=== PATIENT | female | born 1995 | race Hispanic/Latino ===

== ENCOUNTER 2017-11-09 11:59 | Outpatient (CLI) | payer MEDICAID ==
[2017-11-09] MEDS ORDERED: LACTATED RINGERS 500 ML IV ONE (13:56)
[2017-11-09 16:12] LABS: Bilirubin,Urine NEG (Negative); Blood,Urine NEG (Negative); Color,Urine Yellow (Yellow); Mucus,Urine FEW /HPF; Protein,Urine <15 mg/dL mg/dL (Negative); Urobilinogen,Urine < 2.0 mg/dL (<2.0)
[2017-11-09 17:12] VITALS: BP 130/82
== END 2017-11-09 17:20 | disposition home or self-care (01) ==
LOC: TRG 11:59
PROVIDERS: ATTEND Obstetrics & Gynecology
DX: O47.03 False labor before 37 completed weeks of gestation, third trimester (principal); Z3A.31 31 weeks gestation of pregnancy
CPT/HCPCS: 59025; 81001; 96360; 96361; J7120

== ENCOUNTER 2017-12-03 07:26 | Outpatient (CLI) | payer MEDICAID ==
[2017-12-03] MEDS ORDERED: LACTATED RINGERS 1,000 ML IV ONE (08:27)
[2017-12-03 08:30] LABS: Bilirubin,Urine NEG (Negative); Blood,Urine NEG (Negative); Color,Urine Yellow (Yellow); Mucus,Urine FEW /HPF; Protein,Urine <15 mg/dL mg/dL (Negative); Urobilinogen,Urine < 2.0 mg/dL (<2.0)
[2017-12-03 09:38] VITALS: BP 126/71
== END 2017-12-03 09:38 | disposition home or self-care (01) ==
LOC: TRG 07:26
PROVIDERS: ATTEND Obstetrics & Gynecology
DX: O47.03 False labor before 37 completed weeks of gestation, third trimester (principal); Z3A.35 35 weeks gestation of pregnancy
CPT/HCPCS: 59025; 81001; 96360; J7120

== ENCOUNTER 2017-12-08 10:56 | Emergency (ER) | payer MEDICAID ==
[2017-12-08 11:10] VITALS: BP 115/70
--- NOTE | 2017-12-08 11:33 | Emergency Department Report ---
ED ENT HPI - General Chief complaint: Sore Throat Stated complaint: SORE THROAT Time Seen by Provider: 12/08/17 11:17 Source: patient Mode of arrival: Ambulatory Limitations: No Limitations - History of Present Illness Initial comments: This is a 22-year-old female that presents with a sore throat and cough for 6 days. She is 36 weeks and has a follow-up appointment on with [facility]. Reports was diagnosed with laryngeal pharyngitis last week and prescribed antibiotic and supportive medication. She has not tried taking anything for symptom control because she was afraid. She is able to tolerate liquids and solids. Admits to sore throat, cough, bilateral ear pain with coughing. Denies nausea or vomiting, fever, shortness of breath, chest pain, and dizziness. MD complaint: sore throat, ear pain -: days(s) (6 days) Location: R ear, L ear, throat Severity: mild Severity scale (0 -10): 0 Quality: aching Consistency: constant Improves with: none Worsens with: swallowing, eating Context- Ear: other (pain with coughing) Associated Symptoms: cough, pain with swallowing, sore throat. denies: fever, gum swelling, toothache, tinnitus, hearing loss, discharge from ear, rhinorrhea - Related Data Previous Rx's Medication Instructions Recorded Last Taken Type Acetaminophen [Acetaminophen TAB] 325 mg PO Q6HR PRN #30 tablet 12/08/17 Unknown Rx Penicillin V Potassium 500 mg PO BID #14 tablet 12/08/17 Unknown Rx guaiFENesin [Guaifenesin] 400 mg PO BID #14 tablet 12/08/17 Unknown Rx Allergies Allergy/AdvReac Type Severity Reaction Status Date / Time No Known Allergies Allergy Unverified 11/09/17 12:00 ED Dental HPI - General Chief complaint: Sore Throat Stated complaint: SORE THROAT Time Seen by Provider: 12/08/17 11:17 Source: patient Mode of arrival: Ambulatory Limitations: No Limitations - Related Data Previous Rx's Medication Instructions Recorded Last Taken Type Acetaminophen [Acetaminophen TAB] 325 mg PO Q6HR PRN #30 tablet 12/08/17 Unknown Rx Penicillin V Potassium 500 mg PO BID #14 tablet 12/08/17 Unknown Rx guaiFENesin [Guaifenesin] 400 mg PO BID #14 tablet 12/08/17 Unknown Rx Allergies Allergy/AdvReac Type Severity Reaction Status Date / Time No Known Allergies Allergy Unverified 11/09/17 12:00 ED Review of Systems ROS: Stated complaint: SORE THROAT Other details as noted in HPI Constitutional: denies: chills, fever ENT: throat pain. denies: ear pain, dental pain, hearing loss, epistaxis, congestion Respiratory: cough. denies: shortness of breath, wheezing Cardiovascular: denies: chest pain, palpitations, edema, syncope Gastrointestinal: denies: abdominal pain, nausea, vomiting, diarrhea Neurological: denies: headache, weakness, numbness, paresthesias Psychiatric: denies: anxiety, depression Hematological/Lymphatic: denies: easy bleeding, easy bruising ED Past Medical Hx - Past Medical History Hx Hypertension: No Hx Diabetes: No Hx Deep Vein Thrombosis: No Hx Renal Disease: No Hx Sickle Cell Disease: No Hx Seizures: No Hx Asthma: No Hx HIV: No - Surgical History Past Surgical History?: No - Social History Smoking Status: Never Smoker - Medications Home Medications: Home Medications Medication Instructions Recorded Confirmed Last Taken Type Acetaminophen [Acetaminophen TAB] 325 mg PO Q6HR PRN #30 tablet 12/08/17 Unknown Rx Penicillin V Potassium 500 mg PO BID #14 tablet 12/08/17 Unknown Rx guaiFENesin [Guaifenesin] 400 mg PO BID #14 tablet 12/08/17 Unknown Rx ED Physical Exam - General Limitations: No Limitations General appearance: alert, in no apparent distress - ENT ENT exam: Present: mucous membranes moist, TM's normal bilaterally, normal external ear exam, other (Posterior pharynx is minimally erythematous. No exudates or tonsilur swelling are noted. Uvula midline.). Absent: normal orophraynx, mucous membranes dry - Neck Neck exam: Present: normal inspection, full ROM. Absent: tenderness, meningismus, lymphadenopathy - Respiratory Respiratory exam: Present: normal lung sounds bilaterally. Absent: respiratory distress, wheezes, rales, rhonchi, stridor, accessory muscle use - Cardiovascular Cardiovascular Exam: Present: regular rate, normal rhythm, normal heart sounds. Absent: systolic murmur, diastolic murmur, rubs, gallop - GI/Abdominal GI/Abdominal exam: Present: soft, normal bowel sounds. Absent: organomegaly, mass - Neurological Exam Neurological exam: Present: alert, oriented X3 - Psychiatric Psychiatric exam: Present: normal affect, normal mood - Skin Skin exam: Present: warm, dry, intact, normal color. Absent: rash ED Course Vital Signs 12/08/17 12/08/17 11:05 11:58 Temperature 98.3 F Pulse Rate 105 H 86 Respiratory 18 Rate Blood Pressure 115/70 ED Medical Decision Making - Medical Decision Making This is a 22 y.o. female 36 weeks gestation with sore throat and cough for 5 days. Patient examined by me and stable. No distress noted. Vitals mild tachycardia on arrival, reevaluation 86. No labs ordered, according to centor criteria no labs are required for 2 points. Start guifenasin, penicillin v, and take tylenol for pain. Discussed plan with patient and she agreed with plan to treat outpatient. Discharged home. Follow up with PCP in 48-72 hours. She will f/u with [facility]/STEWARD[facility] next on scheduled appointment. Critical care attestation.: If time is entered above; I have spent that time in minutes in the direct care of this critically ill patient, excluding procedure time. ED Disposition Clinical Impression: Sore throat Acute pharyngitis Qualifiers: Pharyngitis/tonsillitis etiology: unspecified etiology Qualified Code(s): J02.9 - Acute pharyngitis, unspecified Disposition: - TO HOME OR SELFCARE Is pt being admited?: No Does the pt Need Aspirin: No Condition: Stable Instructions: Pharyngitis (ED) Additional Instructions: Expect symptoms to improve within 3 or 4 days. There is no need for bed rest or isolation. Use Tylenol for symptoms of sore throat, headache, and fever. Return to work in 24 hours of taking antibiotics. Follow up with Primary Care Provider in 48-72 hours. Prescriptions: Acetaminophen [Acetaminophen TAB] 325 mg PO Q6HR PRN #30 tablet PRN Reason: Pain guaiFENesin [Guaifenesin] 400 mg PO BID #14 tablet Penicillin V Potassium 500 mg PO BID #14 tablet Referrals: [facility] [Outside] - 3-5 Days [facility] [Provider Group] - 3-5 Days [facility] [Provider Group] - 3-5 Days Time of Disposition: 11:53 Print Language: MONGOLIAN
== END 2017-12-08 12:04 | disposition home or self-care (01) ==
LOC: ED 10:56
DX: J02.9 Acute pharyngitis, unspecified (principal)
CPT/HCPCS: 99281

== ENCOUNTER 2018-01-10 07:59 | Inpatient (IN) | payer MEDICAID ==
[2018-01-10] MEDS ORDERED: PITOCin/NS 30 UNIT/500ML 30 UNITS/500 ML BAG IV SCH ×4 (11:21→19:00)
[2018-01-10] MEDS ORDERED: LACTATED RINGERS 1,000 ML ONE (11:47)
[2018-01-10] MEDS ORDERED: SUBLIMAZE IV ONE (17:25)
[2018-01-10] MEDS ORDERED: BRETHINE SUB-Q PRN ×2 (18:02→18:49)
[2018-01-10] MEDS ORDERED: ePHEDrine SULFATE IV PRN ×3 (18:02→19:49)
[2018-01-10] MEDS ORDERED: BRETHINE IVP PRN ×2 (18:02→18:49)
[2018-01-10] MEDS ORDERED: SUBLIMAZE IV PRN (18:02)
[2018-01-10] MEDS ORDERED: MINERAL OIL PO PRN ×2 (18:02→18:49)
[2018-01-10] MEDS ORDERED: XYLOCAINE 2% INFILTRATI ONE ×3 (18:02→22:50)
[2018-01-10] MEDS ORDERED: STADOL IV PRN (18:02)
[2018-01-10] MEDS ORDERED: PHENERGAN PO PRN ×2 (18:49→23:13)
[2018-01-10] MEDS ORDERED: NARCAN 0.4 MG/1 ML IV PRN (18:49)
[2018-01-10] MEDS ORDERED: ZOFRAN IV PRN ×2 (18:49→23:13)
--- NOTE | 2018-01-10 18:57 | History and Physical Report ---
History of Present Illness Date of examination: 01/10/18 Date of admission: 01/10/18 08:00 Chief complaint: I broke my water History of present illness: This is a 22 yo at 40+ weeks came into triage c/o leaking since this am clear. She is a [facility] patient that was late to care 18 weeks. She was + for RPR false + T pallidum FTA. Rubella non immune. Past History Past Medical History: no pertinent history Past Surgical History: no surgical history Family/Genetic History: none Social history: single. denies: smoking, alcohol abuse, prescription drug abuse - Obstetrical History Expected Date of Delivery: 01/06/18 Actual Gestation: 40 Week(s) 4 Day(s) : 1 Para: 0 Hx # Term Pregnancies: 0 Number of Pregnancies: 0 Spontaneous Abortions: 0 Induced : 0 Number of Living Children: 0 Medications and Allergies Allergies Allergy/AdvReac Type Severity Reaction Status Date / Time No Known Allergies Allergy Verified 01/10/18 11:27 Home Medications Medication Instructions Recorded Confirmed Last Taken Type Acetaminophen [Acetaminophen TAB] 325 mg PO Q6HR PRN #30 tablet 12/08/17 Unknown Rx Penicillin V Potassium 500 mg PO BID #14 tablet 12/08/17 Unknown Rx guaiFENesin [Guaifenesin] 400 mg PO BID #14 tablet 12/08/17 Unknown Rx Active Meds: Active Medications Butorphanol Tartrate (Stadol) 2 mg IV Q2H PRN PRN Reason: Pain , Severe (7-10) Ephedrine Sulfate (Ephedrine Sulfate) 10 mg IV Q2M PRN PRN Reason: Hypotension Fentanyl (Sublimaze) 100 mcg IV Q2H PRN PRN Reason: Labor Pain Oxytocin/Sodium Chloride (Pitocin/Ns 30 Unit/500ml) 30 units in 500 mls @ 4 mls /hr IV TITR JÚNIOR; Protocol Last Titration: 01/10/18 14:30 Dose: 8 ml/hr, 8 mls/hr Lactated Ringer's (Lactated Ringers) 1,000 mls @ 125 mls/hr IV DIRECT JÚNIOR Oxytocin/Sodium Chloride (Pitocin/Ns 20 Unit/1000ml Drip) 20 units in 1,000 mls @ 125 mls/hr IV DIRECT JÚNIOR Oxytocin/Sodium Chloride (Pitocin/Ns 30 Unit/500ml) 30 units in 500 mls @ 1 mls /hr IV TITR JÚNIOR; Protocol Mineral Oil (Mineral Oil) 30 ml PO QHS PRN PRN Reason: Constipation Terbutaline Sulfate (Brethine) 0.25 mg SUB-Q ONCE PRN PRN Reason: Hyperstimulation/Hypertonicity Terbutaline Sulfate (Brethine) 0.25 mg IVP ONCE PRN PRN Reason: Hyperstimulation/Hypertonicity Review of Systems All systems: negative Genitourinary: leakage of fluid - Vital Signs Vital signs: Vital Signs Pulse Pulse Ox 78 97 01/10/18 08:17 01/10/18 08:17 Temp Pulse Resp BP Pulse Ox 98.4 F 71 20 117/71 98 01/10/18 17:16 01/10/18 17:16 01/10/18 17:16 01/10/18 17:16 01/10/18 17:16 - Physical Exam Breasts: Positive: normal Cardiovascular: Regular rate, Normal S1 Lungs: Positive: Clear to auscultation Abdomen: Positive: normal appearance, soft, normal bowel sounds. Negative: distention, tenderness, guarding Genitourinary (Female): Positive: normal external genitalia, normal perenium Vulva: both: normal Uterus: Positive: normal size Anus/Rectum: Positive: normal perianal skin Extremities: Positive: normal Deep Tendon Reflex Grade: Normal +2 - Obstetrical FHR: category 1 Cervical Dilatation: 2 Cervical Effacement Percentage: 50 station: -2 Results All other labs normal. Ultrasound: report reviewed Assessment and Plan A/P IUP 40 + weeks GBS neg SROM clear ( pooling, + nitrazine VALORIE 6.5) Augment labor EFW 2782 offer epidural expect vaginal delivery
[2018-01-10] MEDS ORDERED: LACTATED RINGERS 1,000 ML IV SCH ×2 (19:00)
[2018-01-10] MEDS ORDERED: PITOCin/NS 20 UNIT/1000ML DRIP 20 UNITS/1,000 ML BAG IV SCH ×3 (19:00→23:45)
[2018-01-10] MEDS ORDERED: NARCAN 2 MG/2 ML IV PRN (19:49)
--- NOTE | 2018-01-10 19:52 | Anesthesia Consultation ---
Anesthesia Consult and Med Hx Date of service: 01/10/18 - Airway Anesthetic Teeth Evaluation: Good ROM Head & Neck: Adequate Mental/Hyoid Distance: Adequate Mallampati Class: Class II - Pulmonary Exam CTA: Yes - Cardiac Exam Cardiac Exam: RRR - Pre-Operative Health Status ASA Pre-Surgery Classification: ASA2 Proposed Anesthetic Plan: Epidural - Pulmonary Hx Asthma: No COPD: No Hx Pneumonia: No - Cardiovascular System Hx Hypertension: No - Central Nervous System Hx Seizures: No Hx Psychiatric Problems: No - Endocrine Hx Renal Disease: No Hx End Stage Renal Disease: No Hx Hypothyroidism: No Hx Hyperthyroidism: No - Hematic Hx Anemia: No Hx Sickle Cell Disease: No - Other Systems Hx Alcohol Use: No
[2018-01-10] MEDS ORDERED: fentaNYL-BUPIV 2 MCG/ML-0.125% 200 MCG/100 ML BAG EPIDURAL SCH (20:00)
[2018-01-10 20:03] LABS: Hematocrit 41.2 % (30.3-42.9); Hemoglobin 13.2 gm/dl (10.1-14.3); Mean Corpuscular HGB Conc 32 % (30-34); Mean Corpuscular Hemoglobin 29 pg (28-32); Mean Corpuscular Volume 92 fl (79-97); Platelet Count 333 K/mm3 (140-440); Red Blood Count 4.49 M/mm3 (3.65-5.03); Red Cell Distribution Width 14.5 % (13.2-15.2)
[2018-01-10] MEDS ORDERED: PHENERGAN PR PRN (23:13)
[2018-01-10] MEDS ORDERED: DULCOLAX PR PRN (23:13)
[2018-01-10] MEDS ORDERED: MILK OF MAGNESIA PO PRN (23:13)
[2018-01-10] MEDS ORDERED: PERCOCET 5/325 PO PRN (23:13)
[2018-01-10] MEDS ORDERED: TORADOL IV PRN (23:13)
[2018-01-10] MEDS ORDERED: LANSINOH TP PRN (23:13)
[2018-01-10] MEDS ORDERED: NORCO 5/325 PO PRN (23:13)
[2018-01-10] MEDS ORDERED: TUCKS PAD TP PRN (23:13)
[2018-01-10] MEDS ORDERED: TYLENOL PO PRN (23:13)
[2018-01-10] MEDS ORDERED: BENADRYL PO PRN (23:13)
--- NOTE | 2018-01-10 23:28 | Procedure Note ---
OB Delivery Note - Delivery Date of Delivery: 01/10/18 Surgeon: ALVIN LARSON Estimated blood loss: 300cc - Vaginal Delivery presentation: vertex Delivery position: OA Intrapartum events: extend. bradycardia Delivery augmentation: pitocin Delivery monitor: external FHT, external uterine Route of delivery: vacuum extraction Indicators for instrumentation: nonreassuring FHR tracing Delivery placenta: spontaneous Delivery cord: nuchal cord, 3 umbilical vessels Episiotomy: none Delivery laceration: 1st degree Delivery repair: vicryl Anesthesia: local, epidural Delivery comments: 22 y/o now P 2 experienced vacuum assisted delivery over intact perineum, on 01/10/18 @ 7014. The vacuum was placed at (+2) station, DORINA position after bladder emptied and anesthesia found to be adequate. was delivered within 2 pulls without complication. The 's head was delivered in a controlled manner. The OP and nares were then bulb suctioned on the perineum. Amniotic fluid was clear. Nuchal cord was noted x1 loose was reduced. The 's body was then delivered in the usual manner without difficulty. The cord was clamped and cut. The infant was handed to the nurse in attendance. The placenta delivered intact with 3VC followed by 30 units of Pitocin IV and uterine massage for hemostasis. UPL=[id number]. The bilateral labial lacs was repaired in the usual manner. The cervix and vagina were inspected for lacs and none were noted. The , viable male Apgars 7 and 9 and weight 3184g. Needle and laps correct x 2. - Infant A at 1 minute: 7 at 5 minutes: 9 Infant Gender: Male
[2018-01-10] MEDS ORDERED: SODIUM CHLORIDE FLUSH SYRINGE 10 ML IV PRN (23:45)
--- NOTE | 2018-01-11 00:22 | Ultrasound Report ---
FINAL REPORT PROCEDURE: US OB FOLLOW UP TECHNIQUE: Real-time transabdominal sonography of the uterus, placenta, amniotic fluid, adnexa, and fetus was performed with image documentation. Measurements were obtained to determine age/size. M-mode Doppler was used to document heartbeat. CPT 59476 HISTORY: SROM. Post dates. COMPARISON: No prior studies are available for comparison. FINDINGS: LMP: 03/30/2017. Clinical age: 40 weeks 6 days. EDC: 01/04/2018. GENERAL: IUP: Single living intrauterine . Position: Cephalic Placental position: Anterior grade 3, without previa. Amniotic fluid volume: 6.5 cm. MATERNAL: Uterus: Within normal limits. Cervical length: Not measured by technologist. Internal Os: Closed. FETUS: Heart rate and rhythm: 166 beats per minute. anatomic survey: Limited. MEASUREMENTS: BPD: 9.03 cm, 36 weeks 4 days HC: 32.23 cm, 36 weeks 3 days AC: 30.91 cm, 34 weeks 6 days FL: 7.27 cm, 37 weeks 2 days HC/AC ratio: 1 Cephalic index: 84.2 Mean Gestational Age (composite criteria): 36 weeks 2 days. Estimated Weight: 2782 grams. Interval growth: Appropriate. Estimated Due Date (earliest scan): 02/05/2018. IMPRESSION: Single intrauterine gestation at 36 weeks 2 days estimated due date: 02/05/2018. Mild oligohydramnios.
[2018-01-11] MEDS: MOTRIN PO SCH ×4 (01:26→19:13)
[2018-01-11] MEDS ORDERED: PRENATAL VITAMIN PO SCH (10:00)
[2018-01-11] MEDS: COLACE PO SCH ×2 (10:31→23:17)
[2018-01-11] MEDS: SENOKOT S PO SCH ×3 (10:32→23:17)
[2018-01-11 11:34] LABS: Hematocrit 32.6 % (30.3-42.9); Hemoglobin 10.8 gm/dl (10.1-14.3)
--- NOTE | 2018-01-11 16:47 | Progress Note ---
Assessment and Plan A: PPD#1 s/p VAVD at term P: Routine care. Encouraged pt to communicate with her nurse any concerns that she may have. Subjective - Subjective Date of service: 01/11/18 Principal diagnosis: s/p VAVD at term Interval history: Pt reports some difficulty but she has not communicated that to her nurse. She also reports the baby "doesn't like the hospital milk" but she did not inform her nurse. : doing well Objective - Vital Signs Latest vital signs: Vital Signs Temp Pulse Resp BP BP Pulse Ox 01/11/18 01:26 18 01/11/18 01:14 98.3 F 76 18 120/69 97 01/11/18 00:34 98.3 F 81 18 117/57 117/57 01/11/18 00:22 87 18 123/56 123/56 01/10/18 23:49 94 H 18 123/65 123/65 01/10/18 23:39 164 H 52 H 01/10/18 23:34 109 H 18 139/63 139/63 01/10/18 23:19 107 H 18 123/73 123/73 01/10/18 22:57 112 H 98 01/10/18 22:54 54 L 88 01/10/18 22:52 96 H 98 01/10/18 22:47 99 H 99 01/10/18 22:42 85 95 18 22:38 97 H 94 18 22:37 89 97 01/10/18 22:34 88 130/64 01/10/18 22:32 119 H 96 01/10/18 22:27 92 H 95 01/10/18 22:22 99 H 96 18 22:19 105 H 118/63 01/10/18 22:18 108 H 94 01/10/18 22:17 94 H 95 01/10/18 22:12 89 94 01/10/18 22:07 91 H 94 01/10/18 22:04 85 112/58 01/10/18 22:02 99 H 94 01/10/18 22:01 102 H 94 01/10/18 21:57 89 95 18 21:56 93 H 94 01/10/18 21:52 95 H 93 01/10/18 21:50 86 124/69 07/19/18 21:47 101 H 94 07/19/18 21:42 103 H 95 07/19/18 21:39 107 H 94 07/19/18 21:37 103 H 97 07/19/18 21:34 93 H 117/79 07/19/18 21:32 116 H 96 07/19/18 21:27 96 H 96 07/19/18 21:22 109 H 96 07/19/18 21:19 87 110/59 07/19/18 21:17 114 H 97 07/19/18 21:12 93 H 97 07/19/18 21:07 102 H 97 07/19/18 21:05 80 94 07/19/18 21:02 79 113/59 96 07/19/18 21:00 98.6 F 98 H 18 115/62 115/62 07/19/18 20:58 100 H 114/62 90 07/19/18 20:57 100 H 116/59 97 07/19/18 20:55 96 H 103/54 07/19/18 20:52 91 H 101/55 96 07/19/18 20:50 102 H 112/57 07/19/18 20:48 107 H 120/56 07/19/18 20:47 97 H 96 07/19/18 20:46 97 H 121/59 07/19/18 20:44 93 H 116/64 07/19/18 20:43 104 H 120/91 07/19/18 20:42 120 H 97 07/19/18 20:40 111 H 106/61 07/19/18 20:38 106 H 108/63 93 07/19/18 20:37 117 H 95 07/19/18 20:36 111 H 111/65 07/19/18 20:35 116 H 99/56 07/19/18 20:34 115 H 104/56 07/19/18 20:32 110 H 110/62 94 07/19/18 20:31 120 H 108/70 07/19/18 20:28 102 H 144/60 07/19/18 20:27 97 H 96 07/19/18 20:26 86 94 07/19/18 20:22 93 H 96 07/19/18 20:17 98 H 94 07/19/18 20:12 103 H 94 07/19/18 20:10 96 H 116/88 07/19/18 20:07 93 H 95 01/10/18 20:06 89 94 01/10/18 20:02 91 H 95 01/10/18 20:00 97 H 94 01/10/18 19:57 91 H 97 01/10/18 17:16 98.4 F 71 20 117/71 98 01/10/18 16:47 76 117/71 Intake and Output 01/11/18 01/11/18 01/11/18 06:59 14:59 22:59 Output Total 400 Balance -400 Output: Urine 400 Void 400 Other: Total, Output Amount 400 # Voids Void 1 Estimated Blood Loss 300 - Exam Breasts: Present: deferred Cardiovascular: Present: Regular rate Lungs: Present: Clear to auscultation Abdomen: Present: soft Uterus: Present: fundal height at umbilicus Extremities: Present: normal - Labs Labs: Abnormal lab results 01/10/18 Range/Units 10:30 WBC 12.0 H (4.5-11.0) K/mm3
[2018-01-11] MEDS ORDERED: M-M-R II VACCINE SUB-Q ONE (23:13)
[2018-01-12] MEDS: MOTRIN PO SCH ×3 (00:30→21:26)
[2018-01-12] MEDS ORDERED: BOOSTRIX IM ONE ×2 (06:00→21:45)
--- NOTE | 2018-01-12 16:55 | Progress Note ---
Assessment and Plan PPD 2 s/p vavd. Doing well. Infant receiving phototherapy, but mom doing well. Will plan for discharge on today. Subjective - Subjective Date of service: 01/12/18 Principal diagnosis: s/p VAVD at term Patient reports: appetite normal, voiding normally, pain well controlled, ambulating normally [place]: doing well Objective - Vital Signs Latest vital signs: Vital Signs Temp Pulse Resp BP Pulse Ox 01/12/18 07:59 98.2 F 83 18 120/81 98 01/12/18 06:43 17 01/12/18 00:30 18 01/11/18 23:55 98.4 F 74 18 126/62 98 Intake and Output 01/12/18 01/12/18 01/12/18 06:59 14:59 22:59 Intake Total 240 960 Balance 240 960 Intake: Oral 240 840 Intake, Free Water 120 Other: Total, Intake Amount 240 240 # Voids Void 1 1 # Bowel Movements 1 - Exam Cardiovascular: Present: Regular rate, Normal S1, Normal S2 Lungs: Present: Clear to auscultation, Normal air movement Abdomen: Present: normal appearance, soft Uterus: Present: normal, firm, fundal height below umbilicus Extremities: Present: normal
--- NOTE | 2018-01-12 16:59 | Discharge Summary ---
Providers - Providers Date of Admission: 01/10/18 08:00 Date of discharge: 01/12/18 Attending physician: ALVIN LARSON MD Primary care physician: ALVIN LARSON MD Hospitalization Reason for admission: active labor Delivery: vacuum extraction Episiotomy: none Laceration: none complications: none Discharge diagnosis: IUP at term delivered [place] baby: female Condition at discharge: Good Disposition: DC-30 STILL A PATIENT Plan - Discharge Medications Prescriptions: Ibuprofen [Motrin] 600 mg PO Q8H PRN #30 tablet PRN Reason: Pain oxyCODONE /ACETAMINOPHEN [Percocet 5/325] 1 tab PO Q6HR PRN #30 tablet PRN Reason: Pain - Provider Discharge Summary Activity: routine, no sex for 6 weeks, no heavy lifting 4 weeks, no strenuous exercise Diet: routine Instructions: routine Additional instructions: [] Smoking cessation referral if applicable(refer to patient education folder for contact #) [] Refer to [facility]'s [facility] Booklet Call your doctor immediately for: * Fever > 100.5 * Heavy vaginal bleeding ( >1 pad per hour) * Severe persistent headache * Shortness of breath * Reddened, hot, painful area to leg or breast * Drainage or odor from incision. * Keep incision clean and dry at all times and follow doctor's instructions regarding bathing/showering - Follow up plan Follow up: ALVIN LARSON MD [Primary Care Provider] - 6 Weeks
[2018-01-12] MEDS: COLACE PO SCH (21:26)
[2018-01-12 23:13] VITALS: BP 114/65
== END 2018-01-12 22:30 | disposition home or self-care (01) | DRG 775 ==
LOC: TRG 07:59 → LD 08:00 → TRG 08:06 → OB 01-11 00:43
PROVIDERS: ADMIT Obstetrics & Gynecology; ATTEND Obstetrics & Gynecology
PROC: 0HQ9XZZ Repair Perineum Skin, External Approach (ICD-10-PCS; principal; 2018-01-10)
PROC: 10D07Z6 Extraction of Products of Conception, Vacuum, Via Natural or Artificial Opening (ICD-10-PCS; 2018-01-10)
PROC: 3E0R3BZ Introduction of Anesthetic Agent into Spinal Canal, Percutaneous Approach (ICD-10-PCS; 2018-01-10)
PROC: 00HU33Z Insertion of Infusion Device into Spinal Canal, Percutaneous Approach (ICD-10-PCS; 2018-01-10)
PROC: 3E0234Z Introduction of Serum, Toxoid and Vaccine into Muscle, Percutaneous Approach (ICD-10-PCS; 2018-01-11)
DX: O76 Abnormality in fetal heart rate and rhythm complicating labor and delivery (principal); Z3A.40 40 weeks gestation of pregnancy; Z37.0 Single live birth; O69.81X0 Labor and delivery complicated by cord around neck, without compression, not applicable or unspecified; O70.0 First degree perineal laceration during delivery; Z23 Encounter for immunization
CPT/HCPCS: 36415; 76816; 85014; 85018; 85027; 86592; 86593; 86780; 86850; 86900; 86901; 88307; 90471; 90715; J2590; J3010; J7120

== ENCOUNTER 2018-12-11 13:59 | Emergency (ER) | payer MEDICAID, OTHER ==
--- NOTE | 2018-12-11 14:05 | Emergency Department Report ---
Blank Doc - Documentation Documentation: This is a 23-year-old female that presents with headache. Stated is about 2 m onths . This initial assessment/diagnostic orders/clinical plan/treatment(s) is/are subject to change based on patient's health status, clinical progression and re- assessment by fellow clinical providers in the ED. Further treatment and workup at subsequent clinical providers discretion. Patient/guardians urged not to elope from the ED as their condition may be serious if not clinically assessed and managed. Initial orders include: 1- Patient sent to [facility] for further evaluation and treatment
[2018-12-11 14:06] VITALS: BP 114/56
--- NOTE | 2018-12-11 14:38 | Emergency Department Report ---
ED Headache HPI - General Chief Complaint: Headache Stated Complaint: HEADACHE Time Seen by Provider: 12/11/18 14:04 Source: patient, family Exam Limitations: no limitations - History of Present Illness Initial Comments: Oarlia is a very pleasant 22-year-old female who is currently 2 months who presents with 2 days of frontal headache. She has nasal congestion. Headac he is worse when she moves her eyes. Pain is worse if she coughs. Has had sinusitis on previous occasion. She has taken ibuprofen 200 mg with relief. However she was concerned about overdosing on medication considering she is . Headache is 4 a 10 in severity. No radiation of the headache. Pain is intermittent. Quality: mild Head Injury Location: frontal Recent Head Trauma: occasional headaches Associated Symptoms: nasal drainage Allergies/Adverse Reactions: Allergies No Known Allergies Allergy (Verified 12/11/18 14:00) Home Medications: Ambulatory Orders Acetaminophen [Acetaminophen TAB] 325 mg PO Q6HR PRN #30 tablet 12/08/17 Penicillin V Potassium 500 mg PO BID #14 tablet 12/08/17 guaiFENesin [Guaifenesin] 400 mg PO BID #14 tablet 12/08/17 Ibuprofen [Motrin] 600 mg PO Q8H PRN #30 tablet 01/10/18 oxyCODONE /ACETAMINOPHEN [Percocet 5/325] 1 tab PO Q6HR PRN #30 tablet 01/10/18 ED Review of Systems ROS: Stated complaint: HEADACHE Other details as noted in HPI Comment: All other systems reviewed and negative Constitutional: denies: fever, malaise Neurological: headache. denies: weakness, numbness, paresthesias, confusion, abnormal gait, vertigo ED Past Medical Hx - Past Medical History Previous Medical History?: No Hx Hypertension: No Hx Congestive Heart Failure: No Hx Diabetes: No Hx Deep Vein Thrombosis: No Hx Renal Disease: No Hx Sickle Cell Disease: No Hx Seizures: No Hx Asthma: No Hx COPD: No Hx HIV: No - Surgical History Past Surgical History?: No - Social History Smoking Status: Never Smoker Substance Use Type: None - Medications Home Medications: Home Medications Medication Instructions Recorded Confirmed Last Taken Type Acetaminophen [Acetaminophen TAB] 325 mg PO Q6HR PRN #30 tablet 18 01/11/18 Unknown Rx Penicillin V Potassium 500 mg PO BID #14 tablet 06/16/18 07/20/18 Unknown Rx guaiFENesin [Guaifenesin] 400 mg PO BID #14 tablet 12/08/17 01/11/18 Unknown Rx Ibuprofen [Motrin] 600 mg PO Q8H PRN #30 tablet 01/10/18 Unknown Rx oxyCODONE /ACETAMINOPHEN [Percocet 1 tab PO Q6HR PRN #30 tablet 01/10/18 Unknown Rx 5/325] ED Physical Exam - General Limitations: No Limitations General appearance: alert, in no apparent distress, other (smiling, articulate, appears well and comfortable) - Head Head exam: Present: atraumatic, normocephalic - Eye Eye exam: Present: normal appearance. Absent: scleral icterus, conjunctival injection - ENT ENT exam: Present: mucous membranes moist - Neck Neck exam: Present: normal inspection, full ROM. Absent: tenderness, meningismus - Respiratory Respiratory exam: Present: normal lung sounds bilaterally. Absent: respiratory distress, wheezes, rales, rhonchi - Cardiovascular Cardiovascular Exam: Present: regular rate, normal rhythm, normal heart sounds. Absent: systolic murmur, diastolic murmur, rubs, gallop - GI/Abdominal GI/Abdominal exam: Present: soft, normal bowel sounds. Absent: distended, tenderness, guarding, rebound - Extremities Exam Extremities exam: Present: normal inspection - Back Exam Back exam: Present: normal inspection - Neurological Exam Neurological exam: Present: alert, oriented X3 - Psychiatric Psychiatric exam: Present: normal affect, normal mood - Skin Skin exam: Present: warm, dry, intact, normal color. Absent: rash ED Course Vital Signs 12/11/18 14:04 Temperature 98.5 F Pulse Rate 72 Respiratory 16 Rate Blood Pressure 114/56 O2 Sat by Pulse 99 Oximetry ED Medical Decision Making - Medical Decision Making Oralia presents with mild sinus headache while 2 months . I informed her that Tylenol and Benadryl were safe for headache and nasal congestion during her . I discouraged use of ibuprofen while . discharge home in stable condition. Critical care attestation.: If time is entered above; I have spent that time in minutes in the direct care of this critically ill patient, excluding procedure time. ED Disposition Clinical Impression: Sinus headache, First trimester Disposition: - TO HOME OR SELFCARE Is pt being admited?: No Does the pt Need Aspirin: No Condition: Stable Instructions: Acute Headache (ED) Forms: Accompanied Note, Work/School Release Form(ED)
== END 2018-12-11 16:19 | disposition home or self-care (01) ==
LOC: ED 13:59
DX: O26.891 Other specified pregnancy related conditions, first trimester (principal); R51 Headache; Z3A.01 Less than 8 weeks gestation of pregnancy

== ENCOUNTER 2019-04-02 22:06 | Outpatient (CLI) | payer MEDICAID ==
[2019-04-02 23:23] VITALS: BP 116/64
[2019-04-03] MEDS ORDERED: LACTATED RINGERS 1,000 ML IV ONE (00:19)
[2019-04-03 01:11] LABS: Bilirubin,Urine NEG (Negative); Blood,Urine MOD (Negative); Color,Urine Yellow (Yellow); Mucus,Urine FEW /HPF; Protein,Urine <15 mg/dL mg/dL (Negative); RBC,Urine > 182.0 /HPF (0.0-6.0); Urobilinogen,Urine < 2.0 mg/dL (<2.0)
[2019-04-03] MEDS ORDERED: LIDOCAINE-MPF (1%) 10 MG/1 ML VIAL 5 ML INFILTRATI ONE (01:45)
== END 2019-04-03 02:10 | disposition home or self-care (01) ==
LOC: TRG 22:06
PROVIDERS: ATTEND Obstetrics & Gynecology
DX: O60.02 Preterm labor without delivery, second trimester (principal); Z3A.24 24 weeks gestation of pregnancy
CPT/HCPCS: 81001; 96372; J0696

== ENCOUNTER 2019-05-10 05:02 | Emergency (ER) | payer MEDICAID ==
[2019-05-10] MEDS ORDERED: SODIUM CHLORIDE 0.9% 1000 ML 1,000 ML IV ONE (07:59)
--- NOTE | 2019-05-10 08:22 | Emergency Department Report ---
ED General Adult HPI - General Chief complaint: Earache Stated complaint: BILATERAL EARACHE/THROAT PAIN Time Seen by Provider: 05/10/19 07:13 Source: patient Mode of arrival: Ambulatory Limitations: No Limitations - History of Present Illness Initial comments: 24-year-old female patient who is 30 weeks presents with complaints of bilateral ear pain, throat pain, nasal congestion, and intermittent headaches for the past 2 days. She denies any fever, chills, nausea/vomiting, abdominal pain, vaginal bleeding/dysuria, shortness of breath, chest pain, or swelling. Patient rates her pain at in 8/10 in severity. She admits to recurrent ear infections as a child. She denies any current headache. She states Tylenol and Benadryl did not seem to help with the pain. -: Sudden Severity scale (0 -10): 8 Associated Symptoms: headaches. denies: cough, diaphoresis, fever/chills, loss of appetite, malaise, nausea/vomiting, shortness of breath, syncope - Related Data Previous Rx's Medication Instructions Recorded Last Taken Type Acetaminophen [Acetaminophen TAB] 325 mg PO Q6HR PRN #30 tablet 12/08/17 Unknown Rx Penicillin V Potassium 500 mg PO BID #14 tablet 12/08/17 Unknown Rx guaiFENesin [Guaifenesin] 400 mg PO BID #14 tablet 12/08/17 Unknown Rx Ibuprofen [Motrin] 600 mg PO Q8H PRN #30 tablet 01/10/18 Unknown Rx oxyCODONE /ACETAMINOPHEN [Percocet 1 tab PO Q6HR PRN #30 tablet 01/10/18 Unknown Rx 5/325] Amoxicillin/Potassium Clav 1 each PO BID 5 Days #10 tablet 05/10/19 Unknown Rx [Augmentin 875-125 Tablet] Allergies Allergy/AdvReac Type Severity Reaction Status Date / Time No Known Allergies Allergy Verified 12/11/18 14:00 ED Review of Systems ROS: Stated complaint: BILATERAL EARACHE/THROAT PAIN Other details as noted in HPI Constitutional: denies: chills, diaphoresis, fever, malaise Eyes: denies: eye pain, eye discharge, vision change ENT: ear pain, throat pain, congestion. denies: dental pain, hearing loss Respiratory: denies: cough, shortness of breath, SOB with exertion, SOB at rest Cardiovascular: denies: chest pain, edema, syncope Endocrine: no symptoms reported Gastrointestinal: denies: abdominal pain, nausea, vomiting Genitourinary: other (cloudy urine). denies: urgency, dysuria, frequency, hematuria, discharge Musculoskeletal: denies: back pain, joint swelling Skin: denies: rash, lesions Neurological: headache. denies: numbness, paresthesias, confusion, abnormal gait, vertigo Psychiatric: denies: anxiety, depression Hematological/Lymphatic: denies: easy bleeding, easy bruising ED Past Medical Hx - Past Medical History Previous Medical History?: Yes Hx Hypertension: No Hx Congestive Heart Failure: No Hx Diabetes: No Hx Deep Vein Thrombosis: No Hx Renal Disease: No Hx Sickle Cell Disease: No Hx Seizures: No Hx Asthma: No Hx COPD: No Hx HIV: No - Surgical History Past Surgical History?: No - Social History Smoking Status: Never Smoker Substance Use Type: None - Medications Home Medications: Home Medications Medication Instructions Recorded Confirmed Last Taken Type Acetaminophen [Acetaminophen TAB] 325 mg PO Q6HR PRN #30 tablet 12/08/17 01/11/18 Unknown Rx Penicillin V Potassium 500 mg PO BID #14 tablet 18 01/11/18 Unknown Rx guaiFENesin [Guaifenesin] 400 mg PO BID #14 tablet 12/08/17 01/11/18 Unknown Rx Ibuprofen [Motrin] 600 mg PO Q8H PRN #30 tablet 01/10/18 Unknown Rx oxyCODONE /ACETAMINOPHEN [Percocet 1 tab PO Q6HR PRN #30 tablet 01/10/18 Unknown Rx 5/325] Amoxicillin/Potassium Clav 1 each PO BID 5 Days #10 tablet 05/10/19 Unknown Rx [Augmentin 875-125 Tablet] ED Physical Exam - General Limitations: No Limitations General appearance: alert, in no apparent distress - Head Head exam: Present: atraumatic, normocephalic - Eye Eye exam: Present: normal appearance, PERRL, EOMI. Absent: scleral icterus, conjunctival injection - ENT ENT exam: Present: normal exam, mucous membranes moist, TM's normal bilaterally - Neck Neck exam: Present: normal inspection, full ROM. Absent: lymphadenopathy - Respiratory Respiratory exam: Present: normal lung sounds bilaterally. Absent: respiratory distress - Cardiovascular Cardiovascular Exam: Present: normal rhythm, tachycardia, normal heart sounds - GI/Abdominal GI/Abdominal exam: Present: soft, tenderness. Absent: guarding, rebound, rigid - Extremities Exam Extremities exam: Absent: pedal edema - Neurological Exam Neurological exam: Present: alert, oriented X3 - Psychiatric Psychiatric exam: Present: normal affect, normal mood - Skin Skin exam: Present: warm, dry, intact, normal color. Absent: rash ED Course Vital Signs 05/10/19 05/10/19 05:06 10:54 Temperature 98.1 F 97.9 F Pulse Rate 114 H 107 H Respiratory 18 20 Rate Blood Pressure 110/63 Blood Pressure 112/58 [Right] O2 Sat by Pulse 96 99 Oximetry ED Medical Decision Making - Lab Data Lab Results 05/10/19 Range/Units 08:40 Urine Color Yellow (Yellow) Urine Turbidity Clear (Clear) Urine pH 7.0 (5.0-7.0) Ur Specific [place] 1.014 (1.003-1.030) Urine Protein <15 mg/dl (Negative) mg/dL Urine Glucose (UA) Neg (Negative) mg/dL Urine Ketones Neg (Negative) mg/dL Urine Blood Neg (Negative) Urine Nitrite Neg (Negative) Urine Bilirubin Neg (Negative) Urine Urobilinogen < 2.0 (<2.0) mg/dL Ur Leukocyte Esterase Tr (Negative) Urine WBC (Auto) 4.0 (0.0-6.0) /HPF Urine RBC (Auto) 1.0 (0.0-6.0) /HPF U Epithel Cells (Auto) 6.0 (0-13.0) /HPF Urine Bacteria (Auto) 1+ (Negative) /HPF Urine Mucus Few /HPF - Medical Decision Making 30 week 24-year-old patient presents with complaints of bilateral ear pain, throat pain, and intermittent headaches and cloudy urine. Denies any current headache. Ear exam is normal. Throat shows mild erythema without tonsillomegaly or tonsillar exudate. Patient is afebrile. Mild tachycardia noted at 114. Patient given 1 L bolus and heart rate improved to 107. She denies any chest pain, shortness of breath, palpitations, or swelling. UA is positive for bacteria-Will treat for UTI given cloudy urine and presents bacteria in the urine during . Recommend patient follow up with her [facility] within the next 2-5 days. Strict return precautions were discussed in great detail with patient who states understanding. Critical care attestation.: If time is entered above; I have spent that time in minutes in the direct care of this critically ill patient, excluding procedure time. ED Disposition Clinical Impression: Bacteria in urine, Viral URI Disposition: TO HOME OR SELFCARE Is pt being admited?: No Condition: Stable Instructions: Urinary Tract Infection in Women (ED), Upper Respiratory Infection (ED) Additional Instructions: Please follow-up with your [facility] provider within 3-5 days. Prescriptions: Amoxicillin/Potassium Clav [Augmentin 875-125 Tablet] 1 each PO BID 5 Days #10 tablet Referrals: PRIMARY CARE, [Primary Care Provider] - 3-5 Days
[2019-05-10 09:04] LABS: Bacteria,Urine 1+ /HPF (Negative); Bilirubin,Urine NEG (Negative); Blood,Urine NEG (Negative); Color,Urine Yellow (Yellow); Mucus,Urine FEW /HPF; Protein,Urine <15 mg/dL mg/dL (Negative); Urobilinogen,Urine < 2.0 mg/dL (<2.0)
[2019-05-10 10:57] VITALS: BP 112/58
== END 2019-05-10 11:18 | disposition home or self-care (01) ==
LOC: ED 05:02
DX: J06.9 Acute upper respiratory infection, unspecified (principal); R82.71 Bacteriuria; H92.03 Otalgia, bilateral; Z79.899 Other long term (current) drug therapy; Z79.1 Long term (current) use of non-steroidal anti-inflammatories (NSAID)
CPT/HCPCS: 81001; 87116; 87430; 99283; J7030

== ENCOUNTER 2019-06-16 07:31 | Outpatient (CLI) | payer MEDICAID ==
[2019-06-16 08:31] VITALS: BP 111/61
[2019-06-16 08:31] LABS: Bilirubin,Urine NEG (Negative); Blood,Urine NEG (Negative); Color,Urine Yellow (Yellow); Mucus,Urine FEW /HPF; Protein,Urine <15 mg/dL mg/dL (Negative); Urobilinogen,Urine < 2.0 mg/dL (<2.0)
== END 2019-06-16 09:08 | disposition home or self-care (01) ==
LOC: TRG 07:31
PROVIDERS: ATTEND Obstetrics & Gynecology
DX: O47.03 False labor before 37 completed weeks of gestation, third trimester (principal); Z3A.35 35 weeks gestation of pregnancy
CPT/HCPCS: 59025; 81001

== ENCOUNTER 2019-07-21 12:27 | Outpatient (CLI) | payer MEDICAID ==
[2019-07-21 12:50] VITALS: BP 108/69
== END 2019-07-21 14:36 | disposition home or self-care (01) ==
LOC: TRG 12:27
PROVIDERS: ATTEND Obstetrics & Gynecology
DX: O47.1 False labor at or after 37 completed weeks of gestation (principal); Z3A.40 40 weeks gestation of pregnancy
CPT/HCPCS: 59025

== ENCOUNTER 2021-09-14 02:56 | Emergency (ER) | payer MEDICAID ==
[2021-09-14 03:38] VITALS: BP 111/64
== END 2021-09-14 07:00 | disposition left against medical advice (07) ==
LOC: ED 02:56
DX: R07.0 Pain in throat (principal); Z53.21 Procedure and treatment not carried out due to patient leaving prior to being seen by health care provider